=== PATIENT | male | born 1985 | race Caucasian/White ===

== ENCOUNTER 2016-07-11 11:05 | Emergency (ER) | payer OTHER ==
[2016-07-11] MEDS ORDERED: HYDROcodone/APAP 5-325MG 1 EACH TAB PO STA (11:34)
--- NOTE | 2016-07-11 11:51 | ED ---
Male Urogenital HPI - General Chief complaint: Urogenital Stated complaint: testicle pain Time Seen by Provider: 07/11/16 11:29 Source: patient, RN notes reviewed Mode of arrival: ambulatory Limitations: no limitations - History of Present Illness Initial comments: 31-year-old male presents emergency Department chief complaint of left testicular pain. Patient states this started last few days worse after working on a motorcycle on Tuesday night. Patient states that he gets a shooting pain that radiates up into his abdomen. Patient states starts in his left testicle. Patient states there is mild swelling. Patient denies any dysuria, hematuria or increased frequency urination. Patient has a prior hernia. Denies any nausea, vomiting, diarrhea constipation. Patient states the pain was worse today and decided come emergency department - Related Data Home Medications Medication Instructions Recorded Confirmed Amoxic-Pot Clav 875-125Mg 1 tab PO BID 11/26/15 11/26/15 [Augmentin 875-125] Meloxicam [Mobic] 7.5 mg PO DAILY 11/26/15 11/26/15 QUEtiapine [SEROquel] 200 mg PO BID 11/26/15 11/26/15 busPIRone HCL 15 mg PO BID 11/26/15 11/26/15 levETIRAcetam [Keppra] 500 mg PO BID 11/26/15 11/26/15 Previous Rx's Medication Instructions Recorded Hydrocodone/Acetaminophen [[place] 1 each PO Q8H PRN #10 tab 11/26/15 5-325] Hydrocodone/Acetaminophen [[place] 1 tab PO Q6HR PRN #15 tab 07/11/16 5-325] Allergies Allergy/AdvReac Type Severity Reaction Status Date / Time phenytoin sodium Allergy Unknown Verified 07/11/16 11:24 [From Dilantin] phenytoin sodium extended Allergy Unknown Verified 07/11/16 11:24 [From Dilantin] tramadol Allergy Unknown Verified 07/11/16 11:24 Review of Systems ROS Statement: Those systems with pertinent positive or pertinent negative responses have been documented in the HPI. ROS Other: All systems not noted in ROS Statement are negative. Past Medical History Past Medical History: Seizure Disorder History of Any Multi-Drug Resistant Organisms: None Reported Past Surgical History: Appendectomy Past Psychological History: Anxiety, Depression Smoking Status: Current every day smoker Past Alcohol Use History: None Reported Past Drug Use History: None Reported, Unable to Obtain General Exam Limitations: no limitations General appearance: alert, in no apparent distress Head exam: Present: atraumatic, normocephalic, normal inspection Eye exam: Present: normal appearance, PERRL, EOMI. Absent: scleral icterus, conjunctival injection, periorbital swelling Respiratory exam: Present: normal lung sounds bilaterally. Absent: respiratory distress, wheezes, rales, rhonchi, stridor Cardiovascular Exam: Present: regular rate, normal rhythm, normal heart sounds. Absent: systolic murmur, diastolic murmur, rubs, gallop, clicks GI/Abdominal exam: Present: soft, normal bowel sounds. Absent: distended, tenderness, guarding, rebound, rigid exam: Present: normal inspection, testicular tenderness (Mild left), circumcision. Absent: urethral discharge, scrotal swelling, vertical testicular lie Neurological exam: Present: alert, oriented X3, CN II-XII intact Skin exam: Present: warm, dry, intact, normal color. Absent: rash Course Vital Signs 07/11/16 11:22 Temperature 97.5 F L Pulse Rate 88 Respiratory 20 Rate Blood Pressure 136/71 O2 Sat by Pulse 99 Oximetry Medical Decision Making - Medical Decision Making 31-year-old male presents emergency Department chief complaint testicular pain. Patient has bilateral hydroceles. Patient will be referred to urology for testicular pain. Return parameters discussed. - Lab Data Lab Results 07/11/16 Range/Units 11:49 Urine Color Yellow Urine Appearance Clear (Clear) Urine pH 5.5 (5.0-8.0) Ur Specific [place] 1.014 (1.001-1.035) Urine Protein Negative (Negative) Urine Glucose (UA) Negative (Negative) Urine Ketones Negative (Negative) Urine Blood Negative (Negative) Urine Nitrite Negative (Negative) Urine Bilirubin Negative (Negative) Urine Urobilinogen <2.0 (<2.0) mg/dL Ur Leukocyte Esterase Negative (Negative) Disposition Clinical Impression: Testicular pain, Hydrocele Disposition: HOME SELF-CARE Condition: Stable Instructions: Hydrocele (ED), Testicle Pain (ED) Additional Instructions: Please follow-up with urologist as directed.Please return to the Emergency Department if symptoms worsen or any other concerns. Prescriptions: Hydrocodone/Acetaminophen [[place] 5-325] 1 tab PO Q6HR PRN #15 tab PRN Reason: Pain Referrals: Nonstaff,Physician [Primary Care Provider] - 1-2 days Wiley Belcher MD [STAFF PHYSICIAN] - 1-2 days Time of Disposition: 12:54
[2016-07-11 12:07] LABS: Appearance,Urine Clear (Clear); Bilirubin,Urine Negative (Negative); Glucose,Urine (UA) Negative (Negative); Ketones,Urine Negative (Negative); Leukocyte Esterase,Urine Negative (Negative); Nitrite,Urine Negative (Negative); PH, Urine 5.5 (5.0-8.0); Protein,Urine Negative (Negative); Specific Gravity,Urine 1.014 (1.001-1.035); UA Billing (MACRO vs. MICRO) CHEM; Urobilinogen,Urine <2.0 mg/dL (<2.0)
--- NOTE | 2016-07-11 12:38 | US ---
EXAMINATION TYPE: US scrotum with doppler. Grayscale and color Doppler Duplex imaging performed of t adriana scrotum. DATE OF EXAM: 07/11/2016 12:28 PM COMPARISON: No previous CLINICAL HISTORY: Pain. Intermittent left testicular pain EXAM MEASUREMENTS: TESTICLES: Right Testicle: 4.4 x 2.2 x 2.9 cm Left Testicle: 4.6 x 2.5 x 2.5 cm EPIDIDYMIS HEAD: Right Epididymis: 0.7 x 1.0 x 1.5 cm Left Epididymis: 0.9 x 1.1 x 1.5 cm Doppler performed to assess for testicular vascularity; good bilateral color flow and waveforms are s een. There is no evidence of testicular torsion. Presence of hydroceles: yes, right 2.8cm, left 2.4cm Presence of varicoceles: no IMPRESSION: Mild bilateral hydroceles. No testicular torsion or mass seen.
[2016-07-11 13:12] VITALS: BP 139/72; PULSE 75; RESP 18; TEMP 98.3
== END 2016-07-11 13:12 | disposition home or self-care (01) ==
LOC: EC 11:05
DX: N43.3 Hydrocele, unspecified (principal); R10.9 Unspecified abdominal pain; G40.909 Epilepsy, unspecified, not intractable, without status epilepticus; F32.9 Major depressive disorder, single episode, unspecified; F41.9 Anxiety disorder, unspecified; F17.200 Nicotine dependence, unspecified, uncomplicated; Z79.1 Long term (current) use of non-steroidal anti-inflammatories (NSAID); Z79.899 Other long term (current) drug therapy; Z88.6 Allergy status to analgesic agent; Z88.8 Allergy status to other drugs, medicaments and biological substances; Z98.890 Other specified postprocedural states
CPT/HCPCS: 76870; 81003; 87086; 87491; 87591; 93975; 99284